=== PATIENT | female | born 1930 | race American Indian/Alaskan Native ===

== ENCOUNTER 2016-09-17 18:09 | Inpatient (IN) | payer BC, MEDICARE ==
[2016-09-17 18:36] VITALS: BMI 34.6
[2016-09-17] MEDS ORDERED: Digoxin 500 mcg/2ml (0.5 mg/2ml) Inj IVP ONE (18:44)
[2016-09-17 18:50] LABS: BASO % 0.5 % (0.0-2.0); EOS # 0.1 K/uL (0.0-0.7); EOS % 1.4 % (0.0-4.0); HEMATOCRIT 35.5 % (34.0-47.0); LYMPH # 3.2 K/uL (1.0-4.3); LYMPH % 38.1 % (20.0-40.0); MEAN CELL VOLUME 87.4 fL (81.0-99.0); MEAN CORPUSCULAR HGB CONC 33.2 g/dL (33.0-37.0); MEAN PLATELET VOLUME 9.8 fL (7.2-11.7); MONO # 0.7 K/uL (0.0-0.8); MONO % 8.1 % (0.0-10.0); RED CELL DISTRIBUTION WIDTH 14.1 % (11.5-14.5); WHITE BLOOD COUNT 8.5 K/uL (4.8-10.8)
[2016-09-17 18:56] LABS: CHLORIDE 103 mmol/L (98-107)
[2016-09-17 18:57] LABS: POTASSIUM 4.1 mmol/L (3.6-5.2); SODIUM 139 mmol/L (132-148)
[2016-09-17] MEDS ORDERED: Digoxin 500 mcg/2ml (0.5 mg/2ml) Inj ONE (18:57)
[2016-09-17 18:59] LABS: ALKALINE PHOSPHATASE 102 U/L (38-126); AST/SGOT 23 U/L (14-36); BILIRUBIN,TOTAL 0.8 mg/dL (0.2-1.3); BLOOD UREA NITROGEN 28 mg/dL (7-17); CARBON DIOXIDE 26 mmol/L (22-30); GFR AFRICAN-AMERICAN 47; GLUCOSE,RANDOM 110 mg/dL (65-105); TOTAL PROTEIN 7.8 g/dL (6.3-8.3)
[2016-09-17 19:00] LABS: ALT/SGPT 19 U/L (9-52); CALCIUM 8.9 mg/dl (8.6-10.4); MAGNESIUM 1.9 mg/dL (1.6-2.3)
[2016-09-17 19:04] VITALS: PULSE 141
[2016-09-17] MEDS ORDERED: Metoprolol 1 mg/ml Inj IVP ONE ×2 (23:01→23:23)
[2016-09-17] MEDS ORDERED: Heparin25000 units/250ml 1/2NS 25,000 UNITS/250 ML BAG IV ONE (23:04)
--- NOTE | 2016-09-17 23:24 | C.PDOC ---
History Of Present Illness Pt was sent in by Dr. Sallie Burrell for new onset of rapid afib. He recommended starting pt on Cardizem drip and giving pt Digoxin 0.25mg IV. Time Seen by Provider: 09/17/16 18:26 Chief Complaint (Nursing): Palpitations History Per: Patient, Family, Other (PMD) Onset/Duration Of Symptoms: Unknown Current Symptoms Are (Timing): Still Present Associated Symptoms: Dyspnea Quality Of Symptoms: Rapid Heart Rate Severity: Severe Exacerbating Factor(s): Pos: None Additional History Per: Prior Records Past Medical History Reviewed: Historical Data, Nursing Documentation, Vital Signs Vital Signs: Last Vital Signs Temp 97.7 F 09/17/16 18:33 Pulse 108 H 09/17/16 23:07 Resp 20 09/17/16 23:07 BP 126/78 09/17/16 23:07 Pulse Ox 100 09/17/16 23:07 - Medical History PMH: HTN, Hypercholesterolemia Family History: States: Unknown Family Hx - Social History Hx Alcohol Use: No Hx Substance Use: No - Immunization History Hx Tetanus Toxoid Vaccination: No Hx Influenza Vaccination: No Hx Pneumococcal Vaccination: No Review Of Systems Except As Marked, All Systems Reviewed And Found Negative. Constitutional: Negative for: Fever Cardiovascular: Negative for: Chest Pain Respiratory: Positive for: Shortness of Breath. Negative for: Hemoptysis Gastrointestinal: Negative for: Vomiting, Abdominal Pain Musculoskeletal: Negative for: Neck Pain, Back Pain, Leg Pain Skin: Negative for: Rash Neurological: Negative for: Weakness, Numbness, Seizures, Altered Mental Status Physical Exam - Physical Exam Appears: Non-toxic, In Acute Distress (mild) Skin: Normal Color, Warm, Dry, No Rash Head: Atraumatic, Normacephalic Eye(s): bilateral: Normal Inspection, PERRL, EOMI Neck: Normal ROM, Supple Cardiovascular: Rhythm Irregular (tachycardia) Respiratory: Normal Breath Sounds, No Accessory Muscle Use Gastrointestinal/Abdominal: Soft, No Tenderness Back: No CVA Tenderness Extremity: Normal ROM, No Calf Tenderness Neurological/Psych: Oriented x3, Normal Motor, Normal Sensation ED Course And Treatment - Laboratory Results Result Diagrams: 09/17/16 18:44 09/17/16 18:44 ECG: Interpreted By Me, Viewed By Me ECG Rhythm: Atrial Fibrillation, Nonspecific Changes ECG Interpretation: Abnormal Interpretation Of ECG: Afib with RVR. Rate From EC O2 Sat by Pulse Oximetry: 100 Pulse Ox Interpretation: Normal - Radiology CXR: Interpreted by Me, Viewed By Me CXR Interpretation: Yes: No Acute Disease Progress Note: HR modestly improved after Cardizem drip and Digoxin, however BP dropped and therefore unable to titrate Cardizem up to better control HR. - Physician Consult Information Physician Contacted: Dilcia Washington (ICU) Outcome Of Conversation: She evaluated pt in the ED and admitted to ICU. Disposition Discussed With : Ulisses Burrell Comment: He accepted pt on his service. Doctor Will See Patient In The: Hospital Counseled Patient/Family Regarding: Studies Performed, Diagnosis - Disposition Disposition: HOSPITALIZED Disposition Time: 23:25 Condition: SERIOUS - Clinical Impression Clinical Impression: New onset atrial fibrillation, Atrial fibrillation with rapid ventricular response
[2016-09-17] MEDS ORDERED: Metoprolol 1 mg/ml Inj IVP PRN (23:46)
--- NOTE | 2016-09-18 04:40 | CP.PCM.CON ---
History of Present Illness - History of Present Illness History of Present Illness: This patient was send from Dr. Ulisses Kilgore office for a. fib with RVR. patient seen and examined in Er for a. fibrillation not responding to cardizem and digoxin with jon of BP to the 80's momentarily. On the other had she has a great response to metoprolol, now on metoprolol 12.5 mg po and IV prn, but now wnl. Patient feels well, no palpitations, cp, sob. The patient denies any previous arrhythmia. 10 ros asked and negative PMH: HTN DM DE (many years back, no stent placement) FH not relevant for the case NKDA Social: No alcohol, drugs or smoking. pe: bp 127/53 mmhg, hr 53 nbpm, rr 15 bpm, O2 100% on RA aaox3 elderly female lying in bed in no acute distress in great shape s1, s2 irregularly irregular abdomen soft, non tender skin no rashes no gross focal neurological abnormalities a/p: a. fib: as per chad2 score needs full anticoagulation, started on heparin drip, but now back into sinus (mild bradycardia), will d/c heparin drip and cardiology to assess if she needs life long anticoagulation. Echocardiogram ordered. HTN: multiple bp meds, will stay with metoprolol only for now DM: on januvia, metformin, glipizide ER and lantus, will use only januavia and metfomin for now. Past Patient History - Past Medical History & Family History Past Medical History?: Yes - Past Social History Smoking Status: Never Smoked - CARDIAC Hx Cardiac Disorders: Yes Hx Heart Attack: Yes Hx Hypercholesterolemia: Yes Hx Hypertension: Yes - PULMONARY Hx Respiratory Disorders: No - NEUROLOGICAL Hx Neurological Disorder: No - HEENT Hx HEENT Problems: Yes Other/Comment: eyeglasses for reading - RENAL Hx Chronic Kidney Disease: No - ENDOCRINE/METABOLIC Hx Endocrine Disorders: Yes Hx Diabetes Mellitus Type 2: Yes - HEMATOLOGICAL/ONCOLOGICAL Hx Blood Disorders: Yes Hx Blood Transfusions: Yes Other/Comment: hx of nose bleed - INTEGUMENTARY Hx Dermatological Problems: No - MUSCULOSKELETAL/RHEUMATOLOGICAL Hx Falls: No - GASTROINTESTINAL Hx Gastrointestinal Disorders: Yes Hx Nausea: Yes - GENITOURINARY/GYNECOLOGICAL Hx Genitourinary Disorders: No - PSYCHIATRIC Hx Psychophysiologic Disorder: No Hx Substance Use: No - SURGICAL HISTORY Hx Surgeries: No - ANESTHESIA Hx Anesthesia: No Hx Anesthesia Reactions: No Hx Malignant Hyperthermia: No Has any member of the family had a problem w/ anesthesia?: No Meds Allergies/Adverse Reactions: Allergies Allergy/AdvReac Type Severity Reaction Status Date / Time Penicillins Allergy RASH Verified 09/17/16 18:36 seasonal allergies Allergy Uncoded 09/17/16 18:36 - Medications Medications: Current Medications Metoprolol Tartrate (Lopressor) 5 mg IVP Q6H PRN PRN Reason: Other Metoprolol Tartrate (Lopressor) 25 mg PO Q12H [facility]WIN Results - Vital Signs Recent Vital Signs: Last Vital Signs Temp 98.7 F 09/18/16 00:30 Pulse 54 L 09/18/16 01:00 Resp 11 L 09/18/16 00:30 BP 148/78 09/18/16 00:30 Pulse Ox 100 09/18/16 00:30 - Labs Result Diagrams: 09/17/16 18:44 09/17/16 18:44
--- NOTE | 2016-09-18 08:23 | RAD ---
PROCEDURE: CHEST RADIOGRAPH, 1 VIEW HISTORY: Rapid afib COMPARISON: None available. FINDINGS: LUNGS: Mild venous congestion. Elevated left hemidiaphragm. Patchy increased markings within the medial left lung base. Biapical pleural thickening. Small nodular density at the right lung apex. With PLEURA: No pneumothorax or pleural fluid seen. CARDIOVASCULAR: Tortuous ectatic aorta. OSSEOUS STRUCTURES: No significant abnormalities. VISUALIZED UPPER ABDOMEN: Normal. OTHER FINDINGS: None. IMPRESSION: Mild venous congestion. Elevated left hemidiaphragm. Patchy increased markings within the medial left lung base. Biapical pleural thickening. Small nodular density at the right lung apex. With
[2016-09-18] MEDS: (Novolin R) Insulin Human Regular 100 units/ml vial SC SCH ×3 (11:40→23:47)
--- NOTE | 2016-09-18 12:32 | HP ---
An 85-year-old female who was brought in with a history of rapid atrial fibrillation. She came to [facility] office with emergency and had shortness of breath and was found to be in rapid AFib. Echocardiogra m done in the office on emergent basis had shown normal LV systolic function, moderate degree of LVH, normal size LA, no significant valvular heart disease. She was recommended to go to the Emergency R oom and get admitted. ALLERGIES: PENICILLIN. FAMILY HISTORY: Positive for diabetes and hypertension. Everybody on the maternal side is having di abetes and blood pressure. PERSONAL HISTORY: Does not smoke, does not drink. She is on a 2 gram sodium, low fat, low cholester ol, 1800 ADA diet. She does not exercise. She is . HOME MEDICATIONS: Include Lantus 22 units, Caduet 10/20 one a day, metformin 500 mg twice a day, Glu cotrol-XL 10 mg twice a day, Benicar 40 mg p.o. 1 a day, clonidine 0.1 mg twice a day, Januvia 100 mg p.o. once a day. PAST MEDICAL HISTORY: The patient has a longstanding history of diabetes under the care of Dr. Byrnes. No significant major medical problems. REVIEW OF SYSTEMS: For the past 2 days, she was having extreme shortness of breath, general poor eff ort tolerance. No fever, no chills, no visual disturbances. No history of peptic ulcer disease, no bleeding disorders. Dyspnea on exertion. For the last 2 days, she had palpitations. No hematemesis , no melena. Pain in the hips and knees. No history of TIAs. No CVAs, no seizures. No history of depression. No history of urinary problems. PHYSICAL EXAMINATION: GENERAL: Shows elderly, -[place] female, in no acute distress. VITAL SIGNS: Her blood pressure is 120/70, heart rate of currently 60 and regular. Initially, she w as rapid AFib with a heart rate of 140. Respiratory rate of 20. She is 5 feet 7 inches, weighs 237 pounds. O2 sat was 98% on 2 liters. HEAD: Normocephalic. EYES: No pallor, no icterus. MOUTH: Absence of all teeth. NECK: Supple, no lymphadenopathy, no thyroid enlargement. LUNGS: Clear to auscultation bilaterally. HEART: PMI is not localized. S1, S2 is distant. No definite gallops or murmurs. ABDOMEN: Soft, nontender, no organomegaly. EXTREMITIES: No cyanosis or clubbing, 1+ edema is noted. Distal pulses are intact. All joints have full range of motion. NEUROLOGIC: Awake, alert, oriented x 3. No focal signs. PSYCHIATRIC: No evidence of depression. LABORATORY DATA: CBC and Chem-7 are acceptable. EKG earlier had a rapid AFib converted to sinus. F irst set of enzymes are negative. Chest x-ray had shown minimal vascular congestion. ASSESSMENT: An 85-year-old female with a history of new onset of atrial fibrillation, converted to s inus after metoprolol and Cardizem drip. PLAN: At this point is to obtain the routine labs, thyroid functions and may need sotalol or amiodar one. We will get EP evaluation for long-term antiarrhythmic therapy. Ulisses Burrell MD cc: [id number] TT: 09/18/2016 12:32:07 en
[2016-09-18] MEDS: (Lantus) Insulin Glargine, Recombinant SC SCH (22:00)
--- NOTE | 2016-09-19 07:01 | CP.PCM.CON ---
History of Present Illness - History of Present Illness History of Present Illness: CARDIAC ELECTROPHYSIOLOGY CONSULT NOTE Reason for consult: Afib HPI: Patient is an 85 yo F with hx of IDDM and HTN who was noted to be in Afib with RVR at Dr. Burrell's office. She was there for a routine visit. Denies any palpitations, SOB, chest pain, syncope or presyncope. She does feel fatigued. She came to [facility], and was started on IV cardizem for Afib. She subsequently converted to sinus rhythm. EP is now consulted by Dr. Burrell PMH: IDDM, HTN SH: no tobacco, no etoh, no drugs FH: no premature cad Review of Systems - Review of Systems All systems: reviewed and no additional remarkable complaints except - Constitutional Constitutional: Fatigue - Cardiovascular Cardiovascular: absent: Chest Pain, Dyspnea, Dyspnea on Exertion, Edema, Palpitations Past Patient History - Past Medical History & Family History Past Medical History?: Yes - Past Social History Smoking Status: Never Smoked - CARDIAC Hx Cardiac Disorders: Yes Hx Heart Attack: Yes Hx Hypercholesterolemia: Yes Hx Hypertension: Yes - PULMONARY Hx Respiratory Disorders: No - NEUROLOGICAL Hx Neurological Disorder: No - HEENT Hx HEENT Problems: Yes Other/Comment: eyeglasses for reading - RENAL Hx Chronic Kidney Disease: No - ENDOCRINE/METABOLIC Hx Endocrine Disorders: Yes Hx Diabetes Mellitus Type 2: Yes - HEMATOLOGICAL/ONCOLOGICAL Hx Blood Disorders: Yes Hx Blood Transfusions: Yes Other/Comment: hx of nose bleed - INTEGUMENTARY Hx Dermatological Problems: No - MUSCULOSKELETAL/RHEUMATOLOGICAL Hx Falls: No - GASTROINTESTINAL Hx Gastrointestinal Disorders: Yes Hx Nausea: Yes - GENITOURINARY/GYNECOLOGICAL Hx Genitourinary Disorders: No - PSYCHIATRIC Hx Psychophysiologic Disorder: No Hx Substance Use: No - SURGICAL HISTORY Hx Surgeries: No - ANESTHESIA Hx Anesthesia: No Hx Anesthesia Reactions: No Hx Malignant Hyperthermia: No Has any member of the family had a problem w/ anesthesia?: No Meds Allergies/Adverse Reactions: Allergies Allergy/AdvReac Type Severity Reaction Status Date / Time Penicillins Allergy RASH Verified 09/17/16 18:36 seasonal allergies Allergy Uncoded 09/17/16 18:36 - Medications Medications: Current Medications Amiodarone HCl (Cordarone) 400 mg PO TID [facility] Stop: 09/25/16 18:01 Last Admin: 09/18/16 18:01 Dose: 400 mg Diltiazem HCl (Cardizem Cd) 120 mg PO DAILY [facility] Insulin Glargine (Lantus) 20 unit SC HS [facility] Last Admin: 09/18/16 22:00 Dose: 20 units Insulin Human Regular (Novolin R) 0 unit SC ACHS [facility] PRN Reason: Protocol Last Admin: 09/18/16 23:47 Dose: Not Given Metformin HCl (Glucophage) 500 mg PO BID [facility] Last Admin: 09/18/16 18:01 Dose: 500 mg Metoprolol Tartrate (Lopressor) 5 mg IVP Q6H PRN PRN Reason: Other Metoprolol Tartrate (Lopressor) 25 mg PO Q12H [facility] Last Admin: 09/19/16 05:59 Dose: 25 mg Rivaroxaban (Xarelto) 15 mg PO DAILY [facility] Last Admin: 09/18/16 18:02 Dose: 15 mg Sitagliptin Phosphate (Januvia) 100 mg PO DAILY [facility] Last Admin: 09/18/16 09:40 Dose: 100 mg Physical Exam - Constitutional Appears: Well - Head Exam Head Exam: ATRAUMATIC - Eye Exam Eye Exam: Normal appearance. absent: Scleral icterus - ENT Exam ENT Exam: Mucous Membranes Moist - Respiratory Exam Respiratory Exam: Clear to Auscultation Bilateral - Cardiovascular Exam Cardiovascular Exam: REGULAR RHYTHM, +S1, +S2. absent: Gallop, JVD, Rubs - GI/Abdominal Exam GI & Abdominal Exam: Soft - Extremities Exam Extremities exam: Negative for: calf tenderness, pedal edema - Neurological Exam Neurological exam: Oriented x3 - Psychiatric Exam Psychiatric exam: Normal Mood - Skin Skin Exam: Intact Results - Vital Signs Recent Vital Signs: Last Vital Signs Temp 98.6 F 09/19/16 04:00 Pulse 68 09/19/16 04:43 Resp 17 09/19/16 04:43 BP 140/87 09/19/16 05:59 Pulse Ox 100 09/19/16 03:43 - Labs Result Diagrams: 09/17/16 18:44 09/17/16 18:44 Labs: Laboratory Results - last 24 hr 09/18/16 09/18/16 09/18/16 07:44 11:32 16:06 POC Glucose (mg/dL) 146 H 304 H 103 09/18/16 21:04 POC Glucose (mg/dL) 159 H Assessment & Plan - Assessment and Plan (Free Text) Assessment: 1. New onset paroxysmal AF -- Currently in sinus 2. Preserved LVEF without any significant valvular disease Plan: 1. Amiodarone 400mg TID x 1 week, then 200mg daily to help maintain sinus rhythm 2. In order to consolidate meds, I would consider d/c cardizem and change beta julee to Toprol XL 50mg daily 3. Outpatient monitoring of TSH, LFT's, and PFT's while on amiodarone 4. Xarelto for stroke prevention, since [id number] score is 5 (female gender , age, HTN, DM) General cardiac care per Dr. Ulisses Burrell
--- NOTE | 2016-09-19 08:47 | CARD ---
APPROVED REPORT EKG Measurement Heart [id number] <Conclusion> Atrial fibrillation with rapid ventricular response Incomplete right bundle branch block Left anterior fascicular block Abnormal ECG
[2016-09-19] MEDS ORDERED: diltiaZEM 120 mg/24 Hours CD Cap PO SCH (10:00)
--- NOTE | 2016-09-19 13:09 | CP.PCM.PN ---
Subjective - Date & Time of Evaluation Date of Evaluation: 09/19/16 Time of Evaluation: 13:07 - Subjective Subjective: better.bp high.ep consult michaela. Objective - Vital Signs/Intake and Output Vital Signs (last 24 hours): Temp Pulse Resp BP Pulse Ox 97.9 F 53 L 20 171/75 H 98 09/19/16 08:16 09/19/16 08:16 09/19/16 08:16 09/19/16 08:16 09/19/16 08:16 - Medications Medications: Current Medications Amiodarone HCl (Cordarone) 400 mg PO TID [facility] Stop: 09/25/16 18:01 Last Admin: 09/19/16 09:34 Dose: 400 mg Amlodipine Besylate (Norvasc) 10 mg PO DAILY [facility] Clonidine HCl (Catapres) 0.1 mg PO BID [facility] Insulin Glargine (Lantus) 20 unit SC HS [facility] Last Admin: 09/18/16 22:00 Dose: 20 units Insulin Human Regular (Novolin R) 0 unit SC ACHS [facility] PRN Reason: Protocol Last Admin: 09/18/16 23:47 Dose: Not Given Metformin HCl (Glucophage) 500 mg PO BID [facility] Last Admin: 09/19/16 09:34 Dose: 500 mg Metoprolol Tartrate (Lopressor) 25 mg PO Q12H [facility] Last Admin: 09/19/16 05:59 Dose: 25 mg Rivaroxaban (Xarelto) 15 mg PO DAILY [facility] Last Admin: 09/19/16 11:46 Dose: 15 mg Sitagliptin Phosphate (Januvia) 100 mg PO DAILY [facility] Last Admin: 09/19/16 09:34 Dose: 100 mg - Labs Labs: PT 11.4 SECONDS (9.7-12.2) 09/17/16 18:44 INR 1.0 09/17/16 18:44 APTT 33 SECONDS (21-34) 09/17/16 18:44 - Constitutional Appears: No Acute Distress - Eye Exam Eye Exam: Normal appearance - ENT Exam ENT Exam: Mucous Membranes Moist - Respiratory Exam Respiratory Exam: Clear to Ausculation Bilateral - Cardiovascular Exam Cardiovascular Exam: REGULAR RHYTHM, Murmur - GI/Abdominal Exam GI & Abdominal Exam: Soft - Extremities Exam Extremities Exam: absent: Pedal Edema - Neurological Exam Neurological Exam: Alert, Oriented x3 Assessment and Plan - Assessment and Plan (Free Text) Assessment: will resume norvasc,clonidoine.also benicar when she goes home. jeffery. d/c am
[2016-09-19] MEDS: (Novolin R) Insulin Human Regular 100 units/ml vial SC SCH ×3 (13:27→22:30)
--- NOTE | 2016-09-19 18:34 | CARD ---
APPROVED REPORT EKG Measurement Heart [id number] <Conclusion> Sinus bradycardia Left axis deviation Nonspecific intraventricular block Abnormal ECG
[2016-09-19] MEDS: (Lantus) Insulin Glargine, Recombinant SC SCH (22:29)
[2016-09-20] MEDS: (Novolin R) Insulin Human Regular 100 units/ml vial SC SCH ×4 (08:05→21:17)
--- NOTE | 2016-09-20 13:15 | PN ---
DATE: 09/20/2016 The computers are down. Cannot type or use computer, so this is a progress note being dictated for ryan amaya. This is an 85-year-old female who was status post atrial fibrillation, now in sinus rhythm. PHYSICAL EXAMINATION: VITAL SIGNS: Stable. Blood pressure is 126/70, heart rate 50 and regular, respiratory rate of 12. LUNGS: Clear. CARDIAC: Unchanged. Soft S4 gallop. ABDOMEN: Soft. EXTREMITIES: Unremarkable. Telemetry shows sinus bradycardia. ASSESSMENT AND PLAN: Status post conversion to sinus rhythm from atrial fibrillation. At this point , we will continue with amiodarone. Toprol is on hold because of severe bradycardia. Also, we will cut back the clonidine to once a day. We will continue the Norvasc and add Cozaar 50 mg p.o. once a day. Will keep her here today and discharge tomorrow. Ulisses Burrell MD cc: [phone] TT: 09/20/2016 13:15:06 Confirmation # [id number] Dictation # [id number] tonia
[2016-09-20 16:27] VITALS: RESP 20
[2016-09-20] MEDS: (Lantus) Insulin Glargine, Recombinant SC SCH (21:20)
[2016-09-21 08:34] VITALS: BP 127/66; TEMP 98.1; O2SAT 97
[2016-09-21] MEDS: (Novolin R) Insulin Human Regular 100 units/ml vial SC SCH ×2 (08:45→13:03)
[2016-09-21 14:35] VITALS: PULSE 65
--- NOTE | 2016-09-21 15:43 | DS ---
This is an 85-year-old female who came with rapid AFib. She was placed initially on Cardizem. Subse quently, she was also given dose of digoxin and she converted to sinus. Cardizem was discontinued. Metoprolol was added. The patient was placed on amiodarone and she stayed in a sinus rhythm. She wa s loaded with 400 mg 3 times a day. She has done well. She is stable. PHYSICAL EXAMINATION: VITAL SIGNS: Okay. LUNGS: Clear. Routine labs were acceptable. She is also a diabetic and hypertensive. At this point, she is being discharged to be followed up in 1 weeks' time. At the time of discharge, she will be on amiodarone 4 00 mg 1 a day, Toprol-XL 25 mg p.o. 1 a day. She is on Benicar 40/12.5 which will be continued. Melina nidine was decreased to 0.1 mg p.o. at bedtime. She will continue on Norvasc 10 mg that she has been on at home. She is also on Januvia, Lantus and metformin at home and will be continued the same. DISCHARGE DIET: 2 g sodium, low fat, low cholesterol, 1800 ADA. I will see her back in 1 weeks' time. FINAL DIAGNOSES: Atrial fibrillation, converted to sinus, hypertension, diabetes, obesity, possible angina. Echocardiogram done in the office had shown left ventricular hypertrophy with normal left ve ntricular systolic function and no significant valvular heart disease, left atrium size was normal. Ulisses Burrell MD cc: [phone] TT: 09/21/2016 15:42:16 en
== END 2016-09-21 15:30 | disposition home or self-care (01) | DRG 310 ==
LOC: C.ER 18:09 → C.9I 23:28 → C.6T 09-19 07:45
PROVIDERS: ADMIT Internal Medicine Cardiovascular Disease; ATTEND Internal Medicine Cardiovascular Disease
DX: I48.0 Paroxysmal atrial fibrillation (principal); E11.9 Type 2 diabetes mellitus without complications; I10 Essential (primary) hypertension; I51.7 Cardiomegaly; E66.9 Obesity, unspecified; Z68.38 Body mass index [BMI] 38.0-38.9, adult; Z79.4 Long term (current) use of insulin